=== PATIENT | female | born 1980 | race African-American/Black ===

== ENCOUNTER 2016-08-27 13:26 | Emergency (ER) | payer SELFPAY ==
[2016-08-27] MEDS ORDERED: HYDROCODONE/ACETAMINOPHEN 5-325 MG TABLET PO ONE (14:27)
--- NOTE | 2016-08-27 14:29 | ER Document Report ---
ED Medical Screen (RME) - General Chief Complaint: Abdominal Pain Stated Complaint: ABOMINAL PAIN Time seen by provider: 14:27 Mode of Arrival: Ambulatory Information source: Patient TRAVEL OUTSIDE OF THE [place] IN LAST 30 DAYS: No - HPI Patient complains to provider of: lower abdominal pain Onset: This morning Onset/Duration: Sudden Quality of pain: Sharp, Stabbing Severity: Moderate Associated Symptoms: Vaginal bleeding Exacerbated by: Denies Relieved by: Denies Similar symptoms previously: No Recently seen / treated by doctor: No - Related Data Allergies/Adverse Reactions: Penicillins Allergy (Severe, Verified 08/27/16 14:27) Edema Past Medical History Renal/ Medical History: Denies: Hx Peritoneal Dialysis Past Surgical History: Reports: Hx Appendectomy - Immunizations Hx Diphtheria, Pertussis, Tetanus Vaccination: Yes Physical Exam - Vital signs Vitals: Temp Pulse Resp BP Pulse Ox 98.1 F 69 18 114/96 H 99 08/27/16 13:43 08/27/16 13:43 08/27/16 13:43 08/27/16 13:43 08/27/16 13:43 Course - Vital Signs Vital signs: Temp Pulse Resp BP Pulse Ox 98.1 F 69 18 114/96 H 99 08/27/16 13:43 08/27/16 13:43 08/27/16 13:43 08/27/16 13:43 08/27/16 13:43
[2016-08-27 14:42] LABS: ABSOLUTE EOSINOPHILS # (AUTO) 0.2 10^3/uL (0.0-0.6); ABSOLUTE LYMPHOCYTES (AUTO) 0.9 10^3/uL (0.5-4.7); ABSOLUTE MONOCYTES (AUTO) 0.6 10^3/uL (0.1-1.4); BASOPHILS % (AUTO) 0.8 % (0-2); EOSINOPHILS % (AUTO) 3.1 % (0-6); HEMATOCRIT 42.4 % (36.0-47.0); HEMOGLOBIN 14.1 g/dL (12.0-15.5); HGB HCT DIFFERENCE -0.1; LYMPHOCYTES % (AUTO) 15.7 % (13-45); MEAN CORPUSCULAR HEMOGLOBIN 29.2 pg (27.0-33.4); MEAN CORPUSCULAR HGB CONC 33.2 g/dL (32.0-36.0); MEAN CORPUSCULAR VOLUME 88 fl (80-97); MONOCYTES % (AUTO) 10.8 % (3-13); RED BLOOD COUNT 4.83 10^6/uL (3.72-5.28); RED CELL DISTRIBUTION WIDTH 13.8 % (11.5-14.0); SEGMENTED NEUTROPHILS % (AUTO) 69.6 % (42-78); WHITE BLOOD COUNT 5.7 10^3/uL (4.0-10.5)
[2016-08-27 14:49] LABS: APPEARANCE,URINE SLIGHTLY-CLOUDY; BILIRUBIN,URINE NEGATIVE (NEGATIVE); GLUCOSE, URINE NEGATIVE (NEGATIVE); KETONES,URINE NEGATIVE (NEGATIVE); LEUKOCYTE ESTERASE,URINE NEGATIVE (NEGATIVE); NITRITE,URINE NEGATIVE (NEGATIVE); PROTEIN,URINE NEGATIVE (NEGATIVE); URINE SPECIFIC GRAVITY 1.026; UROBILINOGEN,URINE NEGATIVE mg/dL (<2.0)
[2016-08-27 15:06] LABS: ALANINE AMINOTRANSFERASE 25 U/L (9-52); ALBUMIN 4.7 g/dL (3.5-5.0); ALKALINE PHOSPHATASE 79 U/L (38-126); ANION GAP 11 (5-19); ASPARTATE AMINO TRANSFERASE 19 U/L (14-36); BILIRUBIN,DIRECT 0.3 mg/dL (0.0-0.4); BILIRUBIN,TOTAL 0.6 mg/dL (0.2-1.3); BLOOD UREA NITROGEN 11 mg/dL (7-20); CALCIUM 9.9 mg/dL (8.4-10.2); CARBON DIOXIDE 27 mmol/L (22-30); CHLORIDE 105 mmol/L (98-107); GLUCOSE 95 mg/dL (75-110); LIPASE 54.3 U/L (23-300); POTASSIUM 4.2 mmol/L (3.6-5.0); SODIUM 143.2 mmol/L (137-145); TOTAL PROTEIN 7.9 g/dL (6.3-8.2)
--- NOTE | 2016-08-27 15:06 | ER Document Report ---
ED GI/ - General Chief Complaint: Abdominal Pain Stated Complaint: ABOMINAL PAIN Mode of Arrival: Ambulatory Information source: Patient Notes: Patient presents complaining of sudden onset of left lower pelvic abdominal pain around 8:00 this morning. Patient states that pain started very came very sharp and then has eased off since this morning. Patient currently denies any nausea, vomiting, diarrhea, or urinary symptoms. Patient denies any fever. Patient denies any concerns about sexually transmitted infection. Patient states that she did have some vaginal spotting yesterday but has increased to normal menstrual flow today. TRAVEL OUTSIDE OF THE [place] IN LAST 30 DAYS: No - HPI Patient complains to provider of: Pelvic pain, Vaginal bleeding. No: Vaginal discharge Onset: This morning Timing/Duration: Sudden, Better Quality of pain: Sharp - Initially sharp Severity at maximum: Severe Severity in ED: Mild Location: Pelvis Vaginal bleeding (Compared to normal period): Similar Menstrual period history: denies: Irregular Sexual history: Active Associated symptoms: denies: Diarrhea, Dizzy, Dysuria, Fever, Nausea, Urinary hesitancy, Urinary frequency, Urinary retention, Urinary urgency, Vaginal discharge, Vomiting Exacerbated by: Denies Relieved by: Denies Similar symptoms previously: No Recently seen / treated by doctor: No - Related Data Allergies/Adverse Reactions: Penicillins Allergy (Severe, Verified 08/27/16 14:27) Edema Past Medical History - General Information source: Patient Last Menstrual Period: 08/26/2016 - Social History Smoking Status: Current Every Day Smoker Frequency of alcohol use: Occasional Drug Abuse: Marijuana Occupation: none Family History: Reviewed & Not Pertinent Patient has suicidal ideation: No Patient has homicidal ideation: No Renal/ Medical History: Reports: Hx Ovarian Cysts. Denies: Hx Peritoneal Dialysis Psychiatric Medical History: Reports: Hx Depression Past Surgical History: Reports: Hx Appendectomy - Immunizations Hx Diphtheria, Pertussis, Tetanus Vaccination: Yes Review of Systems - Review of Systems Constitutional: No symptoms reported. denies: Fever, Recent illness EENT: No symptoms reported Cardiovascular: No symptoms reported. denies: Chest pain Respiratory: No symptoms reported Gastrointestinal: Abdominal pain. denies: Diarrhea, Nausea, Vomiting Genitourinary: No symptoms reported. denies: Burning, Dysuria, Flank pain, Hematuria Female Genitourinary: Vaginal bleeding. denies: , Vaginal discharge Musculoskeletal: No symptoms reported. denies: Back pain Skin: No symptoms reported Hematologic/Lymphatic: No symptoms reported Neurological/Psychological: No symptoms reported Physical Exam - Vital signs Vitals: Temp Pulse Resp BP Pulse Ox 98.1 F 69 18 114/96 H 99 08/27/16 13:43 08/27/16 13:43 08/27/16 13:43 08/27/16 13:43 08/27/16 13:43 - General General appearance: Appears well, Alert In distress: None Notes: PHYSICAL EXAMINATION: GENERAL: Well-appearing and in no acute distress. HEAD: Atraumatic, normocephalic. EYES: sclera anicteric, conjunctiva are normal. ENT: nares patent. Moist mucous membranes. NECK: Normal range of motion, supple without lymphadenopathy LUNGS: CTAB and equal. No wheezes rales or rhonchi. HEART: Regular rate and rhythm without murmurs ABDOMEN: Soft, left lower pelvic tenderness, normal bowel sounds, no guarding. EXTREMITIES: Normal range of motion, no pitting edema. No cyanosis. BACK: No midline tenderness, no step-off or deformity. No CVA tenderness NEUROLOGICAL: Cranial nerves grossly intact. Normal speech. Normal gait. PSYCH: Normal mood, normal affect. SKIN: Warm, Dry, normal turgor, no rashes or lesions noted - Genitourinary External exam: Normal Speculum exam: No: Vaginal discharge Vaginal bleeding: Mild Bimanuel exam: Adnexal tenderness - left. No: Cervical motion tender, Bladder/ Urethral tender Course - Re-evaluation Re-evalutation: 08/27/16 15:[address] Quiñones regarding patient presentation and diagnostic test results. Does not advises pelvic transvaginal ultrasound imaging at this time. 08/27/16 16:01 Patient reports that abdominal pain seems to be improved at this time. Patient laughing, joking with family. Discuss results of patient's diagnostic tests. Explained to patient that it is likely that the hematuria noted on the UA is due to her menstrual cycle, despite being collected with a catheterized specimen. Explained to patient that urine culture will be obtained and that if she needs any additional treatment that we will call her with the results. Discussed possibility of likely ovarian cyst that may have ruptured given patient's presentation and exam findings. Patient's vital signs stable, appears nontoxic in presentation. Good return precautions given to patient. Patient states that she would like to be discharged home. - Vital Signs Vital signs: Temp Pulse Resp BP Pulse Ox 98.1 F 58 L 20 130/70 H 98 08/27/16 16:35 08/27/16 16:35 08/27/16 16:35 08/27/16 16:35 08/27/16 16:35 - Laboratory Result Diagrams: 08/27/16 14:30 08/27/16 14:30 Laboratory results interpreted by me: 08/27/16 08/27/16 14:30 15:30 Urine Protein 30 H Urine Ketones TRACE H Urine Blood MODERATE H MODERATE H 08/27/16 16:03 Labs- Entire Visit 08/27/16 08/27/16 08/27/16 14:30 14:30 14:30 WBC 5.7 RBC 4.83 Hgb 14.1 Hct 42.4 MCV 88 MCH 29.2 MCHC 33.2 RDW 13.8 Plt Count 250 Seg Neutrophils % 69.6 Lymphocytes % 15.7 Monocytes % 10.8 Eosinophils % 3.1 Basophils % 0.8 Absolute Neutrophils 4.0 Absolute Lymphocytes 0.9 Absolute Monocytes 0.6 Absolute Eosinophils 0.2 Absolute Basophils 0.0 Sodium 143.2 Potassium 4.2 Chloride 105 Carbon Dioxide 27 Anion Gap 11 BUN 11 Creatinine 0.80 Est GFR ( Amer) > 60 Est GFR (Non-Af Amer) > 60 Glucose 95 Calcium 9.9 Total Bilirubin 0.6 Direct Bilirubin 0.3 Indirect Bilirubin Not Reportable Neonat Total Bilirubin Not Reportable AST 19 ALT 25 Alkaline Phosphatase 79 Total Protein 7.9 Albumin 4.7 Lipase 54.3 Serum HCG, Qual NEGATIVE Urine Color Urine Appearance Urine pH Ur Specific [place] Urine Protein Urine Glucose (UA) Urine Ketones Urine Blood Urine Nitrite Urine Bilirubin Urine Urobilinogen Ur Leukocyte Esterase Urine WBC (Auto) Urine RBC (Auto) Urine Bacteria (Auto) Squamous Epi Cells Auto Urine Mucus (Auto) Urine Ascorbic Acid Trichomonas (Wet Prep) Vaginal WBC Vaginal Yeast 08/27/16 08/27/16 08/27/16 14:30 15:30 15:30 WBC RBC Hgb Hct MCV MCH MCHC RDW Plt Count Seg Neutrophils % Lymphocytes % Monocytes % Eosinophils % Basophils % Absolute Neutrophils Absolute Lymphocytes Absolute Monocytes Absolute Eosinophils Absolute Basophils Sodium Potassium Chloride Carbon Dioxide Anion Gap BUN Creatinine Est GFR ( Amer) Est GFR (Non-Af Amer) Glucose Calcium Total Bilirubin Direct Bilirubin Indirect Bilirubin Neonat Total Bilirubin AST ALT Alkaline Phosphatase Total Protein Albumin Lipase Serum HCG, Qual Urine Color YELLOW YELLOW Urine Appearance SLIGHTLY-CLOUDY SLIGHTLY-CLOUDY Urine pH 7.0 5.0 Ur Specific [place] 1.026 1.034 Urine Protein NEGATIVE 30 H Urine Glucose (UA) NEGATIVE NEGATIVE Urine Ketones NEGATIVE TRACE H Urine Blood MODERATE H MODERATE H Urine Nitrite NEGATIVE NEGATIVE Urine Bilirubin NEGATIVE NEGATIVE Urine Urobilinogen NEGATIVE NEGATIVE Ur Leukocyte Esterase NEGATIVE NEGATIVE Urine WBC (Auto) 3 5 Urine RBC (Auto) 9 33 Urine Bacteria (Auto) TRACE Squamous Epi Cells Auto 2 4 Urine Mucus (Auto) MANY MANY Urine Ascorbic Acid NEGATIVE NEGATIVE Trichomonas (Wet Prep) NO TRICHOMONAS SEEN Vaginal WBC RARE WBCS SEEN Vaginal Yeast NO YEAST SEEN Discharge - Discharge Clinical Impression: Dysmenorrhea, Pelvic pain Condition: Stable Disposition: HOME, SELF-CARE Instructions: Dysmenorrhea ([facility]), Anti-Inflammatory Medication ([facility]), Ovarian Cyst ([facility]) Additional Instructions: Return immediately for any new or worsening symptoms Followup with your primary care provider, call tomorrow to make a followup appointment Urine culture is pending, we will call if you need any different treatment Prescriptions: Naproxen [Naprosyn 250 Nmg Tablet] 1 tab PO BID #[id number] tablet Referrals: [facility] [Provider Group] - Follow up as needed
[2016-08-27 15:53] LABS: APPEARANCE,URINE SLIGHTLY-CLOUDY; BILIRUBIN,URINE NEGATIVE (NEGATIVE); GLUCOSE, URINE NEGATIVE (NEGATIVE); KETONES,URINE TRACE mg/dL (NEGATIVE); LEUKOCYTE ESTERASE,URINE NEGATIVE (NEGATIVE); NITRITE,URINE NEGATIVE (NEGATIVE); PROTEIN,URINE 30 mg/dL (NEGATIVE); URINE SPECIFIC GRAVITY 1.034; UROBILINOGEN,URINE NEGATIVE mg/dL (<2.0)
[2016-08-27 16:48] VITALS: BP 130/70
[2016-08-27 17:15] LABS: CHLAM PCR NOT DETECTED (NOT DETECT)
== END 2016-08-27 16:48 | disposition home or self-care (01) ==
LOC: ER 13:26
DX: N94.6 Dysmenorrhea, unspecified (principal); R10.2 Pelvic and perineal pain; F17.200 Nicotine dependence, unspecified, uncomplicated; Z88.0 Allergy status to penicillin; Z87.42 Personal history of other diseases of the female genital tract
CPT/HCPCS: 36415; 51701; 80053; 81001; 83690; 84703; 85025; 87086; 87210; 87491; 87591; 99284